=== PATIENT | female | born 1955 | race Two or more races ===

== ENCOUNTER 2020-03-24 13:26 | Outpatient (CLI) | payer OTHER | END 2020-03-24 13:28 | disposition home or self-care (01) | LOC: PPH VACUNA 13:26 | PROVIDERS: ATTEND Emergency Medicine Pediatric Emergency Medicine | DX: Z23 Encounter for immunization (principal) ==

== ENCOUNTER 2020-04-14 07:53 | Outpatient (CLI) | payer OTHER | END 2020-04-14 15:00 | disposition home or self-care (01) | LOC: PPH VACUNA 07:53 | PROVIDERS: ATTEND Emergency Medicine Pediatric Emergency Medicine | DX: Z23 Encounter for immunization (principal) ==

== ENCOUNTER 2021-12-06 13:12 | Outpatient (CLI) | payer OTHER | END 2021-12-06 13:22 | disposition home or self-care (01) | LOC: PPH VACUNA 13:12 | PROVIDERS: ATTEND Emergency Medicine Pediatric Emergency Medicine | DX: Z23 Encounter for immunization (principal) ==